=== PATIENT | male | born 1965 | race Caucasian/White ===

== ENCOUNTER 2019-05-19 23:25 | Emergency (ER) | payer MEDICAID ==
[~2019-05-19] VITALS: Ht 180.3 cm; Wt 81.6 kg
[2019-05-20 00:38] VITALS: BP 147/102
[2019-05-20] MEDS ORDERED: SULFAMETH/TRIMETH 800/160 MG 1 UDTAB TABLET ONE (01:10)
[2019-05-20] MEDS ORDERED: SULFAMETH/TRIMETH 800/160 MG 1 UDTAB TABLET PO ONE (01:30)
== END 2019-05-20 01:17 | disposition home or self-care (01) ==
LOC: ER 23:30
DX: L03.114 Cellulitis of left upper limb (principal); F19.90 Other psychoactive substance use, unspecified, uncomplicated; F17.200 Nicotine dependence, unspecified, uncomplicated; Z88.0 Allergy status to penicillin; Z60.2 Problems related to living alone